=== PATIENT | female | born 2000 | race Caucasian/White ===

== ENCOUNTER 2020-12-12 10:29 | Emergency (ER) | payer OTHER, SELFPAY ==
--- NOTE | ~2020-12-12 | CT_ITS ---
EXAMINATION: CT SOFT TISSUE NECK WITH CONTRAST CLINICAL INFORMATION: Left-sided swelling. Evaluate for peritonsillar abscess. COMPARISON: None TECHNIQUE: Following the intravenous administration of 60 mL of Omnipaque 350 intravenous contrast, helical imaging was performed in the axial plane with generation of coronal and sagittal reformatted images. This CT examination was performed using dose optimization techniques as appropriate, variously including the following: *Automated exposure control *Adjustment of mA and/or kV according to patient size (this includes techniques or standardized protocols for targeted exams where dose is matched to indication/reason for exam; i.e. extremities or head) *Use of iterative reconstruction technique DLP: 655 mGy-cm FINDINGS: There are small area areas of low attenuation seen in the right frontal mucosal space questionable for a small right peritonsillar abscess versus. These measure 5 mm for example axial image 41 and 42 series 2. No evidence of left peritonsillar abscess is seen. The epiglottis and larynx are normal appearing. No dental abscess is seen. The temporomandibular joints are normal. The orbits are normal appearing. The paranasal sinuses, mastoid air cells and middle ears are clear. The salivary glands are normal appearing. The thyroid gland is normal-appearing. There is diffuse cervical lymphadenopathy. Largest lymph nodes are upper normal in size. Larger lymph nodes are bilateral submandibular/jugulodigastric level 2 lymph nodes and left level 3 lymph node adjacent to the jugular veins and just deep to the sternocleidomastoid muscles. Visualized intracranial structures are normal. Visualized lung apices are clear. The superior mediastinum is normal. There is slight increased cervical kyphosis. The cervical spine is otherwise unremarkable. CT/CT soft tissue neck w con IMPRESSION: Small low-attenuation areas in the right pharyngeal mucosal space measuring 5 mm questionable for peritonsillar abscesses. No evidence of left peritonsillar abscess is seen. Diffuse cervical lymphadenopathy.
[2020-12-12 11:15] VITALS: BP 140/87; PULSE 120; RESP 16; TEMP 36.8; O2SAT 97; BMI 28.1
--- NOTE | 2020-12-12 11:42 | ED.GENADULT ---
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 rule out MD complaint: sore throat Onset (ago): week(s) (1) Location: mouth Radiation: non-radiation Severity: moderate Quality: dull Pain Consistency: constant Relieving factors: none Exacerbating factors: other (swallowing) Associated symptoms: fever/chills, loss of appetite and malaise Treatments prior to arrival: none Related Data Previous Rx's Medication Instructions Recorded doxycycline hyclate 100 mg PO BID 7 Days #14 cap 12/12/20 ondansetron 4 mg PO Q8H PRN #20 tab 12/12/20 Allergies Allergy/AdvReac Type Severity Reaction Status Date / Time amoxicillin Allergy Unknown Verified 12/12/20 11:43 azithromycin Allergy Unknown Verified 12/12/20 11:44 Review of Systems Review of Systems: Constitutional : No Weight loss, no Fever, pos Chills, No Fatigue, No Malaise ENT/Mouth : pos sore throat, No Rhinorrhea Eyes: No Eye Pain, No Swelling, No Redness Cardiovascular : No Chest Pain, No SOB, No Dyspnea on Exertion, No Orthopnea, No Edema, No Palpitations Respiratory : No Cough, No Sputum, No Wheezing Gastrointestinal : No Nausea, No Vomiting, No Diarrhea, No Constipation, No abdominal Pain, No Hematochezia, No Melena Genitourinary : No Dysuria, No Urinary Frequency, No Hematuria, Musculoskeletal : No joint pain, No Myalgias, No Joint Swelling Skin : No Skin Lesions, No rash Neuro : No Weakness, No Numbness, No Dizziness, No Headache Psych : No Anxiety/Panic, No Depression Heme/Lymph: No Bruising, No Bleeding, pos Lymphadenopathy Endocrine : No Polyuria, No Polydipsia All other systems reviewed and are negative PMFSH Past Medical History Attestation statement: The following information was validated with the patient. Medical History Anxiety and depression Social History Social History (Updated 12/12/20 @ 11:48 by Susanna Dunlap DO) Smoking Status: Never smoker Use of substances other than those prescribed or required for medical reasons: No Advance Directives: No Advance Directives Information Provided: No Physical Exam Vital Signs: Vital Signs: Last Vital Signs Temp 98.3 F 12/12/20 11:15 Pulse 93 12/12/20 15:33 Resp 16 12/12/20 15:33 BP 127/75 12/12/20 15:33 Pulse Ox 99 12/12/20 15:33 Body Mass Index 28.1 Appearance: Alert. Oriented X3. No acute distress. Eyes: Pupils equal, round and reactive to light. ENT: Pharynx bilateral erythema with patches, uvula midline, no muffled voice, slightly more enlarged L tonsil with patches noted Neck: anterior bilateral cervical lymphadenopathy moderate CVS: Normal heart rate and rhythm. Pulses normal. Respiratory: No respiratory distress. Breath sounds normal. Abdomen: Soft and nontender. Skin: Skin warm and dry. Normal skin color. Normal skin turgor. Extremities: No lower extremity edema. No calf ttp Neuro: Oriented X 3. No motor deficit. No sensory deficit. 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 - will start on clindamycin and refer to ENT at this time on DC discussed with the patient a recent sexual exposure with a male - did has oral intercourse and since then has had sore throat - her reaction to amoxicillin is hives only will start on ceftriaxone and doxy, her girlfriend has similar symptoms and was involved in sexual encounter, states her gonorrhea test two days after exposure was negative, will treat for both at this time Medical Decision Making MDM Narrative Medical decision making narrative: 20 yo female with no sig PMH has had sore throat x 1 week - wosrening, no antibiotics seen at clinics negative strep x 2, mono negative - she has no signs of airway issue, possible RISK DEVELOPER though suspect it would be small - at this time will obtain labs, start on clindamycin, mono test, CT scan for abscess, dispo per results and findings. Lab Data Result diagrams: 12/12/20 12:08 12/12/20 12:08 Labs: Lab Results 12/12/20 12/12/20 12/12/20 Range/Units 12:07 12:08 12:08 WBC 14.9 H (4.8-10.8) X10*3/uL RBC 4.36 (4.20-5.50) X10*6/uL Hgb 12.3 (12.0-16.0) g/dl Hct 37.8 (37-47) % MCV 86.7 (80-98) fL MCH 28.2 (27.0-33.0) pg MCHC 32.5 (31.0-35.0) g/dl RDW 12.4 (11.0-16.0) % Plt Count 335 (160-400) X10*3/uL MPV 9.5 (9.4-12.3) fL Immature Gran % (Auto) 0.5 H (0.0-0.4) % Neut % (Auto) 83.4 H (45-73) % Lymph % (Auto) 10.3 L (20-40) % [place] % (Auto) 5.2 (2-11) % Eos % (Auto) 0.4 (0-4) % Baso % (Auto) 0.2 (0-2) % Lymph # (Auto) 1.5 (1.2-4.9) X10*3/uL [place] # (Auto) 0.8 (0.1-1.2) X10*3/uL Eos # (Auto) 0.1 (0.0-0.4) X10*3/uL Baso # (Auto) 0.0 (0.0-0.2) X10*3/uL Abs Immat Gran (auto) 0.07 H (0.00-0.03) X10*3/uL Absolute Neuts (auto) 12.4 H (2.0-8.3) X10*3/uL Absolute Nucleated RBC 0.000 (0.0-0.012) X10*3/uL Nucleated RBC % (auto) 0.0 (0.0-0.2) /100WBC Hold Blue Top SEE NOTE Sodium (135-145) mmol/L Potassium (3.3-5.1) mmol/L Chloride (96-108) mmol/L Carbon Dioxide (22-29) mmol/L Anion Gap (12-20) BUN (9-16) mg/dL Creatinine (0.5-1.4) mg/dL Estim Creat Clear Calc Estimated GFR Random Glucose (60-115) mg/dL Lactic Acid (0.5-2.0) mmol/L Calcium (8.4-10.2) mg/dL Magnesium (1.6-2.6) mg/dL Total Bilirubin (0.0-1.0) mg/dL Direct Bilirubin (0.0-0.5) mg/dL AST (5-31) U/L ALT (0-31) U/L Alkaline Phosphatase (39-117) U/L Total Protein (6.5-8.0) g/dL Albumin (3.5-5.0) g/dL Urine Test (NEGATIVE) Monoscreen Negative (Negative) 12/12/20 12/12/20 12/12/20 Range/Units 12:08 12:08 12:10 WBC (4.8-10.8) X10*3/uL RBC (4.20-5.50) X10*6/uL Hgb (12.0-16.0) g/dl Hct (37-47) % MCV (80-98) fL MCH (27.0-33.0) pg MCHC (31.0-35.0) g/dl RDW (11.0-16.0) % Plt Count (160-400) X10*3/uL MPV (9.4-12.3) fL Immature Gran % (Auto) (0.0-0.4) % Neut % (Auto) (45-73) % Lymph % (Auto) (20-40) % [place] % (Auto) (2-11) % Eos % (Auto) (0-4) % Baso % (Auto) (0-2) % Lymph # (Auto) (1.2-4.9) X10*3/uL [place] # (Auto) (0.1-1.2) X10*3/uL Eos # (Auto) (0.0-0.4) X10*3/uL Baso # (Auto) (0.0-0.2) X10*3/uL Abs Immat Gran (auto) (0.00-0.03) X10*3/uL Absolute Neuts (auto) (2.0-8.3) X10*3/uL Absolute Nucleated RBC (0.0-0.012) X10*3/uL Nucleated RBC % (auto) (0.0-0.2) /100WBC Hold Blue Top Sodium 140 (135-145) mmol/L Potassium 3.8 (3.3-5.1) mmol/L Chloride 104 (96-108) mmol/L Carbon Dioxide 27 (22-29) mmol/L Anion Gap 13 (12-20) BUN 9 (9-16) mg/dL Creatinine 0.85 (0.5-1.4) mg/dL Estim Creat Clear Calc 116.0 Estimated GFR > 60 Random Glucose 91 (60-115) mg/dL Lactic Acid 1.0 (0.5-2.0) mmol/L Calcium 9.5 (8.4-10.2) mg/dL Magnesium 2.2 (1.6-2.6) mg/dL Total Bilirubin 0.5 (0.0-1.0) mg/dL Direct Bilirubin 0.2 (0.0-0.5) mg/dL AST 33 H (5-31) U/L ALT 49 H (0-31) U/L Alkaline Phosphatase 78 (39-117) U/L Total Protein 7.6 (6.5-8.0) g/dL Albumin 4.4 (3.5-5.0) g/dL Urine Test NEGATIVE (NEGATIVE) Monoscreen (Negative) Discharge Plan Discharge Clinical Impression: Acute infective tonsillitis Patient Disposition: Home, Self-Care Instructions: Tonsillitis (ED) Additional Instructions: return to ED for any worsening symptoms or concerns you were given ceftriaxone to cover any sort of STI as well as doxycycline Prescriptions: New doxycycline hyclate 100 mg capsule 100 mg PO BID 7 Days Qty: 14 RF: 0 ondansetron 4 mg tablet,disintegrating 4 mg PO Q8H PRN (Reason: nausea and vomiting) Qty: 20 RF: 0 Referrals: Mac Horowitz [Physician] - 5 days Stand Alone Forms: Work/School Release
[2020-12-12] MEDS: 0.9 % Sodium Chloride 1,000 ML 999 ML IVCONT (12:11)
[2020-12-12 12:19] LABS: MANUAL DIFF FLAG NO
[2020-12-12 12:22] LABS: Basophils Percent Auto 0.2 % (0-2); Eosinophils Absolute Auto 0.1 X10*3/uL (0.0-0.4); Eosinophils Percent Auto 0.4 % (0-4); Hematocrit 37.8 % (37-47); Hemoglobin 12.3 g/dl (12.0-16.0); Imm Gran Abs Auto 0.07 X10*3/uL (0.00-0.03); Imm Gran Pct Auto 0.5 % (0.0-0.4); Lymphocytes Absolute Auto 1.5 X10*3/uL (1.2-4.9); Lymphocytes Percent Auto 10.3 % (20-40); Mean Corpuscular HGB Conc 32.5 g/dl (31.0-35.0); Mean Corpuscular Hemoglobin 28.2 pg (27.0-33.0); Mean Corpuscular Volume 86.7 fL (80-98); Mean Platelet Volume 9.5 fL (9.4-12.3); Monocytes Absolute Auto 0.8 X10*3/uL (0.1-1.2); Monocytes Percent Auto 5.2 % (2-11); Neutrophils Absolute Auto 12.4 X10*3/uL (2.0-8.3); Neutrophils Percent Auto 83.4 % (45-73); Platelet Count 335 X10*3/uL (160-400); Red Blood Count 4.36 X10*6/uL (4.20-5.50); Red Cell Distribution Width 12.4 % (11.0-16.0); White Blood Count 14.9 X10*3/uL (4.8-10.8)
[2020-12-12 12:26] LABS: UPreg QC Valid YES; Urine Pregnancy NEGATIVE (NEGATIVE)
[2020-12-12 12:46] LABS: Alanine Aminotransferase 49 U/L (0-31); Albumin Level 4.4 g/dL (3.5-5.0); Alkaline Phosphatase 78 U/L (39-117); Anion Gap 13 (12-20); Aspartate Amino Transferase 33 U/L (5-31); Bilirubin Direct 0.2 mg/dL (0.0-0.5); Bilirubin Total 0.5 mg/dL (0.0-1.0); Blood Urea Nitrogen 9 mg/dL (9-16); Calcium 9.5 mg/dL (8.4-10.2); Carbon Dioxide 27 mmol/L (22-29); Chloride 104 mmol/L (96-108); Estimated Glomerular Filt Rate > 60; Glucose Random 91 mg/dL (60-115); Magnesium 2.2 mg/dL (1.6-2.6); Potassium 3.8 mmol/L (3.3-5.1); Sodium 140 mmol/L (135-145); Total Protein 7.6 g/dL (6.5-8.0)
[2020-12-12 13:09] LABS: Monotest Negative (Negative)
[2020-12-12] MEDS: Clindamycin Phosphate/D5W 900 MG/50 ML PIGGYBACK 50 MG IV (13:16)
[2020-12-12] MEDS: iohexoL 350 MG/ML 100 ML INFUS..BTL IV (15:05)
[2020-12-12 15:33] VITALS: BP 127/75; PULSE 93; RESP 16; O2SAT 99
[2020-12-12] MEDS: cefTRIAXone sodium 1 GM in 0.9 % Sodium Chloride 50 ML IV (17:12)
== END 2020-12-12 17:56 | disposition home or self-care (01) ==
PROVIDERS: Emergency Provider Emergency Medicine
DX: J03.90 Acute tonsillitis, unspecified (principal)
CPT/HCPCS: 36415; 70491; 80048; 80076; 81025; 83605; 83735; 85025; 86308; 87040; 87071; 87880; 96361; 96365; 96368; 99284; J0696; Q9967